=== PATIENT | male | born 1940 | race Caucasian/White ===

== ENCOUNTER → 2023-11-19 06:35 | Outpatient (REF) | payer OTHER, SELFPAY | LOC: MRI 06:35 | PROVIDERS: ATTENDING PHYSICIAN Physical Medicine & Rehabilitation; FAMILY PHYSICIAN Family Medicine | DX: M54.12 Radiculopathy, cervical region (principal); M47.816 Spondylosis without myelopathy or radiculopathy, lumbar region; M43.16 Spondylolisthesis, lumbar region; M51.36 Other intervertebral disc degeneration, lumbar region | CPT/HCPCS: 72141; 72148 ==

== ENCOUNTER → 2024-01-12 10:54 | Outpatient (REF) | payer OTHER, SELFPAY ==
[2024-01-12 13:18] LABS: PSA, Total - Diagnostic 1.94 ng/ml (0.0-4.0)
== END ==
LOC: REG 10:54
PROVIDERS: ATTENDING PHYSICIAN Specialist; FAMILY PHYSICIAN Family Medicine
DX: R97.20 Elevated prostate specific antigen [PSA] (principal)
CPT/HCPCS: 36415; 84153

== ENCOUNTER → 2024-03-19 16:12 | Outpatient (REF) | payer OTHER, SELFPAY ==
[2024-03-19 18:40] LABS: PSA, Total - Diagnostic 4.05 ng/ml (0.0-4.0)
== END ==
LOC: REG 16:12
PROVIDERS: ATTENDING PHYSICIAN Specialist; FAMILY PHYSICIAN Family Medicine
DX: R97.20 Elevated prostate specific antigen [PSA] (principal)
CPT/HCPCS: 36415; 84153